=== PATIENT | male | born 1965 | race Caucasian/White ===

== ENCOUNTER 2017-05-18 21:02 | Emergency (ER) | payer MEDICAID, OTHER ==
[2017-05-18 21:31] VITALS: BP 147/89; PULSE 88; RESP 20; TEMP 98.6; O2SAT 98
--- NOTE | 2017-05-18 21:47 | C.PDOC ---
History Of Present Illness 52 y/o male presents to the ED for evaluation of fever, chills, and generalized body aches which began last night. Patient denies cough, sore throat, and sick contacts. Chief Complaint (Nursing): Flu-like Symptoms History Per: Patient History/Exam Limitations: no limitations Onset/Duration Of Symptoms: Hrs Current Symptoms Are (Timing): Still Present Location Of Pain: Diffuse Myalgias Sick Contacts (Context): None Associated Symptoms: Fever, Chills. denies: Sore Throat, Cough Additional History Per: Patient Past Medical History Reviewed: Historical Data, Nursing Documentation, Vital Signs Vital Signs: Last Vital Signs Temp 98.6 F 05/18/17 21:28 Pulse 88 05/18/17 21:28 Resp 20 05/18/17 21:28 BP 147/89 05/18/17 21:28 Pulse Ox 98 05/18/17 22:52 - Medical History PMH: Anxiety, HTN Surgical History: No Surg Hx - [facility] Procedures COLONOSCOPY (12/19/14) Family History: States: Unknown Family Hx - Social History Hx Tobacco Use: No Hx Alcohol Use: No Hx Substance Use: No - Immunization History Hx Tetanus Toxoid Vaccination: No Hx Influenza Vaccination: No Hx Pneumococcal Vaccination: No Review Of Systems Constitutional: Positive for: Fever, Chills ENT: Negative for: Throat Pain Respiratory: Negative for: Cough Musculoskeletal: Positive for: Other (generalized body aches ) Physical Exam - Physical Exam Appears: Non-toxic, No Acute Distress Skin: Normal Color, Warm, Dry Head: Atraumatic, Normacephalic Eye(s): bilateral: Normal Inspection Ear(s): Bilateral: Normal Nose: Normal, No Discharge Oral Mucosa: Moist Throat: Normal, No Erythema, No Exudate Neck: Supple Chest: Symmetrical, No Deformity, No Tenderness Cardiovascular: Rhythm Regular, No Murmur Respiratory: Normal Breath Sounds, No Rales, No Rhonchi, No Wheezing Extremity: Normal ROM, Capillary Refill (less than 2 seconds ) Neurological/Psych: Oriented x3, Normal Speech, Normal Cognition ED Course And Treatment O2 Sat by Pulse Oximetry: 98 (on RA) Pulse Ox Interpretation: Normal Medical Decision Making Medical Decision Making: Progress: Tamiflu PO administered. Disposition - Disposition Referrals: at [facility] [Outside] Disposition: HOME/ ROUTINE Disposition Time: 21:44 Condition: GOOD Prescriptions: Oseltamivir [Tamiflu] 75 mg PO BID #10 cap Instructions: Influenza (ED) Forms: [facility] (Amharic) - Clinical Impression Clinical Impression: Influenza - Scribe Statement The provider has reviewed the documentation as recorded by the Scribe (Elizabeth Escobar) Provider Attestation: All medical record entries made by the Scribe were at my direction and personally dictated by me. I have reviewed the chart and agree that the record accurately reflects my personal performance of the history, physical exam, medical decision making, and the department course for this patient. I have also personally directed, reviewed, and agree with the discharge instructions and disposition.
== END 2017-05-18 22:05 | disposition home or self-care (01) ==
LOC: C.ER 21:02
DX: J11.1 Influenza due to unidentified influenza virus with other respiratory manifestations (principal); I10 Essential (primary) hypertension